=== PATIENT | male | born 1985 | race Two or more races ===

== ENCOUNTER 2024-07-08 02:47 | Emergency (ER) | payer SELFPAY ==
[~2024-07-08] VITALS: Ht 188 cm; Wt 71.3 kg
[2024-07-08 02:49] VITALS: BP 136/91; TEMP 98.7; O2SAT 98
== END 2024-07-08 04:29 | disposition left against medical advice (07) ==
LOC: M ED 02:47
DX: Z53.21 Procedure and treatment not carried out due to patient leaving prior to being seen by health care provider (principal)

== ENCOUNTER 2024-10-04 15:08 | Emergency (ER) | payer OTHER, SELFPAY ==
[~2024-10-04] VITALS: Ht 182.9 cm; Wt 70.5 kg
[2024-10-04 17:41] VITALS: BP 132/84; TEMP 98.1; O2SAT 100
== END 2024-10-04 17:57 | disposition left against medical advice (07) ==
LOC: M ED 15:08 → EDBD 15:08 → M ED 17:57
DX: Z53.21 Procedure and treatment not carried out due to patient leaving prior to being seen by health care provider (principal)